=== PATIENT | male | born 1960 | race Caucasian/White ===

== ENCOUNTER 2020-07-05 22:59 | Emergency (ER) | payer OTHER ==
[~2020-07-05] VITALS: Ht 157.5 cm; Wt 49.4 kg
--- NOTE | 2020-07-05 22:59 | NUR ---
biba to bed 07
[2020-07-05 23:02] VITALS: BP 138/94
--- NOTE | 2020-07-05 23:05 | NUR ---
59 Y/O M, BROUGHT IN WITH C/O GTUBE MALFUNCTION. PER [facility], AT FACILITY PT WALKED UP TO NURSE WITH THE GTUBE IN HAND. GTUBE SITE INTACT. PT NOTED WITH INTELLECTUAL DISABILITIES AND DYSPHAGIA. SP02 96% ON ROOM AIR. SOME INTERMITTENT COUGH NOTED. PT DENIES PAIN. ALL OTHER VITALS WITHIN RANGE. SIDERAILS UP x1, BED LOCKED AND IN LOWEST POSITION. [facility] PAST MEDICAL HX: EPILEPSY, PLEURAL EFFUSION, ATHEROSCLEROSIS, ASTHMA, CP, PSYCHOSIS, PROSTATE DX
--- NOTE | 2020-07-05 23:38 | NUR ---
X-RAY @ BEDSIDE TAKING IMAGES OF PT'S ABDOMIN.
--- NOTE | 2020-07-05 23:38 | NUR ---
X-Ray at bedside.
--- NOTE | 2020-07-06 00:01 | NUR ---
PT AMBULATED TO RESTROOM WITH STANDBY ASSIST. HAD A BOWEL MOVEMENT. PT's GTUBE DISPLACED, ER AWARE. ERMD REINSERTED NEW GTUBE. BALLOON INFLATED. PENDING XRAY.
--- NOTE | 2020-07-06 01:00 | NUR ---
SPOKE WITH MIRANDA PT's INTERMODAL DISPATCHER, ARRANGED FOR PICKUP. ETA PICKUP 2 HOURS (0300) [phone]
[2020-07-06 03:13] VITALS: BP 124/88
--- NOTE | 2020-07-06 03:35 | NUR ---
MIRANDA ([employer] POWDER MIXER OPERATOR) CALLED, CLARIFIED SHE WILL BE HERE TO PICKUP AROUND 0430. PT RESTING WELL, HAS EYES OPEN, COUGHING INTERMITTENTLY, ON ROOM AIR, NO DIFFICULTY BREATHING, MAKES NEEDS KNOWN, SAFETY MEASURES IN PLACE.
--- NOTE | 2020-07-06 04:50 | NUR ---
PT WOKE UP SCREAMING TO USE THE RESTROOM. ASSISTED PT THE BATHROOM, PT VOIDED. PT DROOLED ALL OVER FACE AND SWEATER, PROVIDED CLEANING WIPES. BACK IN BED WITHOUT INCIDENT.
--- NOTE | 2020-07-06 04:53 | NUR ---
Patient discharged with v/s stable. Written and verbal after care instructions given and explained TO CAREGIVER MIRANDA. CAREGIVER verbalized understanding. Ambulatory with by caregiver. All questions addressed prior to discharge. Advised to follow up with PMD. PT IN STABLE CONDITION, GTUBE INTACT, DRESSING DRY AND INTACT.
== END 2020-07-06 04:53 | disposition home or self-care (01) ==
LOC: MED 22:59
DX: K94.23 Gastrostomy malfunction (principal); E03.9 Hypothyroidism, unspecified; G80.9 Cerebral palsy, unspecified; J45.909 Unspecified asthma, uncomplicated
CPT/HCPCS: 43762; 74240; 99284; Q9967

== ENCOUNTER 2022-06-26 22:30 | Inpatient (IN) | payer OTHER, MEDICAID ==
[~2022-06-26] VITALS: Ht 165.1 cm; Wt 59.0 kg
[2022-06-26 22:30] VITALS: BP 119/66
[2022-06-27 00:58] LABS: BASOPHILS % (AUTO) 0.3 % (0.0-2.0); HEMATOCRIT 33.9 % (36-52); HEMOGLOBIN 11.3 g/dL (12.0-18.0); LYMPHOCYTES # (AUTO) 1.4 K/uL (2.0-11.5); LYMPHOCYTES % (AUTO) 11.8 % (20.5-51.1); MEAN CORPUSCULAR HEMOGLOBIN 32 pg (27-31); MEAN CORPUSCULAR HGB CONC 33 g/dL (33-37); MONOCYTES # (AUTO) 2.6 K/uL (0.8-1.0); MONOCYTES % (AUTO) 22.6 % (1.7-9.3); NEUTROPHILS # (AUTO) 7.6 K/uL (1.8-7.7); NEUTROPHILS % (AUTO) 65.3 % (42.2-75.2); PLATELET COUNT (AUTO) 160 K/uL (140-450); RED CELL DISTRIBUTION WIDTH 14.6 % (11.6-13.7); WHITE BLOOD COUNT (AUTO) 11.7 K/uL (4.8-10.8)
[2022-06-27 01:19] LABS: ALBUMIN 2.6 g/dL (3.4-5.0); ANION GAP 10.4 (8-16); CARBON DIOXIDE 30.9 mmol/L (21-32); CREATININE 1.1 mg/dL (0.6-1.3); POTASSIUM 4.3 mmol/L (3.5-5.1); TOTAL BILIRUBIN 0.3 mg/dL (0.0-1.0)
[2022-06-27] MEDS ORDERED: AZITHROMYCIN 500 MG in DEXTROSE 5% 250 ML IV ONE (01:30)
[2022-06-27] MEDS ORDERED: AZITHROMYCIN 500 MG INJ VIAL IV ONE (02:04)
[2022-06-27] MEDS ORDERED: cefTRIAXone 1,000 MG VIAL ONE (02:04)
[2022-06-27 06:58] LABS: BASOPHILS % (AUTO) 0.3 % (0.0-2.0); EOSINOPHILS % (AUTO) 0.1 % (0.0-4.0); HEMATOCRIT 33.2 % (36-52); HEMOGLOBIN 11.2 g/dL (12.0-18.0); LYMPHOCYTES # (AUTO) 2.5 K/uL (2.0-11.5); LYMPHOCYTES % (AUTO) 21.2 % (20.5-51.1); MEAN CORPUSCULAR HEMOGLOBIN 32 pg (27-31); MEAN CORPUSCULAR HGB CONC 34 g/dL (33-37); MEAN CORPUSCULAR VOLUME 95.7 fL (80-94); MONOCYTES # (AUTO) 2.4 K/uL (0.8-1.0); MONOCYTES % (AUTO) 20.4 % (1.7-9.3); NEUTROPHILS # (AUTO) 6.8 K/uL (1.8-7.7); PLATELET COUNT (AUTO) 164 K/uL (140-450); RED BLOOD CELL COUNT(AUTO) 3.47 MIL/uL (4.20-6.10); RED CELL DISTRIBUTION WIDTH 14.3 % (11.6-13.7); WHITE BLOOD COUNT (AUTO) 11.8 K/uL (4.8-10.8)
[2022-06-27 07:01] LABS: CARBON DIOXIDE 31.1 mmol/L (21-32); POTASSIUM 4.1 mmol/L (3.5-5.1)
[2022-06-27 07:40] VITALS: BP 106/76
[2022-06-27] MEDS ORDERED: ONDANSETRON 4 MG/2 ML VIAL IVP PRN (08:00)
[2022-06-27] MEDS ORDERED: DOCUSATE SODIUM 100 MG GELCAP PO PRN (08:00)
[2022-06-27] MEDS ORDERED: MAG SULF 2000 MG/WATER PREMIX 50 ML IV PRN (08:00)
[2022-06-27] MEDS ORDERED: MORPHINE SULFATE 2 MG/ML SYR IVP PRN (08:00)
[2022-06-27] MEDS ORDERED: ACETAMINOPHEN 325 MG TAB PO PRN (08:00)
[2022-06-27] MEDS ORDERED: ZOLPIDEM 10 MG TAB PO PRN (08:00)
[2022-06-27] MEDS ORDERED: POTASSIUM CHLORIDE 10 MEQ TABER PO PRN (08:00)
[2022-06-27] MEDS: PIPERACILLIN/TAZOBACTAM 3.375 GM in DEXTROSE 5% 50 ML IV SCH ×3 (11:28→23:36)
[2022-06-27 20:00] VITALS: BP 106/75
[2022-06-27] MEDS: LORazepam 2 MG/ML VIAL IVP PRN (22:39)
[2022-06-28 04:00] VITALS: BP 97/63
[2022-06-28] MEDS: PIPERACILLIN/TAZOBACTAM 3.375 GM in DEXTROSE 5% 50 ML IV SCH ×3 (05:13→17:13)
[2022-06-28 07:07] LABS: ANION GAP 11.7 (8-16); CARBON DIOXIDE 31.1 mmol/L (21-32); CREATININE 0.9 mg/dL (0.6-1.3); POTASSIUM 3.8 mmol/L (3.5-5.1)
[2022-06-28 07:12] LABS: BASOPHILS % (AUTO) 0.1 % (0.0-2.0); HEMATOCRIT 35.9 % (36-52); LYMPHOCYTES % (AUTO) 7.4 % (20.5-51.1); MEAN CORPUSCULAR HEMOGLOBIN 33 pg (27-31); MEAN CORPUSCULAR HGB CONC 34 g/dL (33-37); MEAN CORPUSCULAR VOLUME 96.9 fL (80-94); MONOCYTES # (AUTO) 2.7 K/uL (0.8-1.0); MONOCYTES % (AUTO) 19.8 % (1.7-9.3); NEUTROPHILS # (AUTO) 9.8 K/uL (1.8-7.7); NEUTROPHILS % (AUTO) 72.7 % (42.2-75.2); PLATELET COUNT (AUTO) 195 K/uL (140-450); RED BLOOD CELL COUNT(AUTO) 3.71 MIL/uL (4.20-6.10); RED CELL DISTRIBUTION WIDTH 14.4 % (11.6-13.7); WHITE BLOOD COUNT (AUTO) 13.5 K/uL (4.8-10.8)
[2022-06-28 08:00] VITALS: BP 114/51
[2022-06-28] MEDS ORDERED: VANCOMYCIN PER PHARMACY MC PRN (08:10)
[2022-06-28] MEDS: VANCOMYCIN 750 MG in DEXTROSE 5% 250 ML IV SCH ×2 (09:11→22:00)
[2022-06-28] MEDS ORDERED: NACL 0.9% 1,000 ML IV SCH (10:50)
[2022-06-28 16:00] VITALS: BP 102/66
[2022-06-28 20:00] VITALS: BP_SYST 100; BP_SYST 112; BP_DIAS 60; BP_DIAS 62
[2022-06-28] MEDS ORDERED: DEXT 5% /NACL 0.9% 1,000 ML IV SCH (20:55)
[2022-06-29] VITALS: BP 101/59
[2022-06-29] MEDS: PIPERACILLIN/TAZOBACTAM 3.375 GM in DEXTROSE 5% 50 ML IV SCH ×4 (00:02→12:26)
[2022-06-29 04:00] VITALS: BP 101/59
[2022-06-29] MEDS ORDERED: ALBUTEROL SULFATE/IPRATROPIU 3 ML SOL IH PRN (06:40)
[2022-06-29 06:52] LABS: ANION GAP 9.4 (8-16); CARBON DIOXIDE 32.3 mmol/L (21-32); CREATININE 0.7 mg/dL (0.6-1.3); POTASSIUM 3.7 mmol/L (3.5-5.1)
[2022-06-29 06:54] LABS: BASOPHILS % (AUTO) 0.5 % (0.0-2.0); EOSINOPHILS % (AUTO) 0.1 % (0.0-4.0); HEMATOCRIT 30.6 % (36-52); HEMOGLOBIN 10.3 g/dL (12.0-18.0); LYMPHOCYTES # (AUTO) 1.3 K/uL (2.0-11.5); LYMPHOCYTES % (AUTO) 14.1 % (20.5-51.1); MEAN CORPUSCULAR HEMOGLOBIN 33 pg (27-31); MEAN CORPUSCULAR HGB CONC 34 g/dL (33-37); MEAN CORPUSCULAR VOLUME 97.7 fL (80-94); MONOCYTES % (AUTO) 21.9 % (1.7-9.3); NEUTROPHILS # (AUTO) 5.9 K/uL (1.8-7.7); NEUTROPHILS % (AUTO) 63.4 % (42.2-75.2); PLATELET COUNT (AUTO) 176 K/uL (140-450); RED BLOOD CELL COUNT(AUTO) 3.13 MIL/uL (4.20-6.10); RED CELL DISTRIBUTION WIDTH 14.6 % (11.6-13.7); WHITE BLOOD COUNT (AUTO) 9.3 K/uL (4.8-10.8)
[2022-06-29 08:00] VITALS: BP 93/47
[2022-06-29] MEDS: VANCOMYCIN 750 MG in DEXTROSE 5% 250 ML IV SCH (08:53)
[2022-06-29] MEDS: LORazepam 2 MG/ML VIAL IVP PRN (08:57)
[2022-06-29] MEDS ORDERED: LEVO-481 PO (10:28)
[2022-06-29] MEDS ORDERED: ALBUTEROL SULFATE/IPRATROPIU 3 ML SOL IH SCH (11:00)
[2022-06-29 11:52] VITALS: BP 93/47
[2022-07-05] MEDS ORDERED: AMOX-999 PO (10:21)
== END 2022-06-29 16:45 | disposition home or self-care (01) | DRG 871 ==
LOC: MED 22:30 → MMU 06-27 02:10 → MTU 06-27 04:07
PROVIDERS: ADMIT Family Medicine; ATTEND Family Medicine
DX: A41.9 Sepsis, unspecified organism (principal); J18.9 Pneumonia, unspecified organism; E44.0 Moderate protein-calorie malnutrition; E87.0 Hyperosmolality and hypernatremia; J81.1 Chronic pulmonary edema; D64.9 Anemia, unspecified; E03.9 Hypothyroidism, unspecified; J45.909 Unspecified asthma, uncomplicated; E83.51 Hypocalcemia; E87.8 Other disorders of electrolyte and fluid balance, not elsewhere classified; Z20.822 Contact with and (suspected) exposure to COVID-19; G80.9 Cerebral palsy, unspecified; Z93.1 Gastrostomy status; Z68.21 Body mass index [BMI] 21.0-21.9, adult; B97.89 Other viral agents as the cause of diseases classified elsewhere
CPT/HCPCS: 36415; 71045; 80048; 80053; 82948; 83735; 85025; 87040; 87070; 87081; 87205; 89220; 94640; 96374; 99285; J0456; J0696; J2060; J2405; J2543; J3370; J7060; Q0092